=== PATIENT | male | born 1975 | race Caucasian/White ===

== ENCOUNTER 2021-11-04 01:44 | Emergency (ER) | payer OTHER ==
--- NOTE | 2021-11-04 02:04 | EDM.PDOC ---
ED HPI GENERAL MEDICAL PROBLEM - General Chief Complaint: Chest Pain Stated Complaint: CHEST PAINS Time Seen by Provider: 11/04/21 01:45 Source of Information: Reports: Patient History Limitations: Reports: No Limitations - History of Present Illness INITIAL COMMENTS - FREE TEXT/NARRATIVE: 46-year-old male presents to the ED complaining of "shock sensation that starts in his chest and radiates to the rest of his body". Patient first experienced an episode like this last Thursday and lasted approximately 10 hours. Occurred again today approximately 1930. Patient does not describe any chest discomfort or chest pain, chest tightness, or pressure. Just an acute onset of the shock sensation that radiates to the rest of his body. Gives it a 4/10 on level of discomfort. Nothing makes it better or worse, patient was just sitting when the sensation came on. Positive for: Recent bereavement, family history of cardiac in the 40s to include AMI and CVA, EtOH x1. Negative for: Shortness of breath, diaphoresis, nausea/vomiting, weakness, fatigue, trauma, syncope/near syncope, constipation/diarrhea, burping, bloating, third vision, headache, difficulty swallowing, red swollen painful joints, rash, fever. - Related Data Allergies Allergy/AdvReac Type Severity Reaction Status Date / Time No Known Allergies Allergy Verified 11/04/21 01:53 Home Meds: Home Meds Alfuzosin [Uroxatral] 10 mg PO DAILY 11/04/21 [History] Losartan [Cozaar] 25 mg PO DAILY 11/04/21 [History] Omeprazole 20 mg PO DAILY 11/04/21 [History] Risankizumab-Rzaa [Skyrizi] 150 mg SQ ONETIME 11/04/21 [History] Past Medical History Cardiovascular History: Reports: Hypertension ED ROS GENERAL - Review of Systems Review Of Systems: Comprehensive ROS is negative, except as noted in HPI. ED EXAM, GENERAL - Physical Exam Exam: See Below Free Text/Narrative:: ABC intact. No apparent distress. No obvious trauma. Speaking in full sentences. Alert and oriented x3, GCS 456. Exam Limited By: No Limitations General Appearance: Alert, WD/WN, No Apparent Distress Eye Exam: Bilateral Eye: EOMI, PERRL Ears: Normal External Exam, Hearing Grossly Normal Nose: Normal Inspection, Normal Mucosa, No Blood Throat/Mouth: Normal Inspection, Normal Lips, Normal Teeth, Normal Gums, Normal Oropharynx, Normal Voice, No Airway Compromise Head: Atraumatic, Normocephalic Neck: Normal Inspection, Supple, Non-Tender. No: Lymphadenopathy (R), Lymphadenopathy (L), Tender Lateral, Tender Midline Respiratory/Chest: No Respiratory Distress, Lungs Clear, Normal Breath Sounds, No Accessory Muscle Use, Chest Non-Tender Cardiovascular: Normal Peripheral Pulses, Regular Rate, Rhythm, No Edema, No Gallop, No JVD, No Murmur, No Rub GI/Abdominal: Soft, Non-Tender, No Organomegaly, No Distention, No Mass, Other (Negative Rovsing, negative Baldwin) (Male) Exam: Deferred Back Exam: Normal Inspection. No: CVA Tenderness (R), CVA Tenderness (L) Neurological: Alert, Oriented, Normal Cognition Psychiatric: Normal Affect, Normal Mood Skin Exam: Warm, Dry, Intact, Normal Color, No Rash Lymphatic: No Adenopathy #1 Interpretation EKG Date: 11/04/21 (Normal sinus rhythm, without ectopy. No ST elevation or depression, this is not a STEMI, inverted T waves and inverted T waves in V1, flat T waves in lead III) Course - Vital Signs Last Recorded V/S: Last Vital Signs Temp 98.7 F 11/04/21 01:44 Pulse 84 11/04/21 01:44 Resp 16 11/04/21 01:44 BP 156/11 11/04/21 01:44 Pulse Ox 98 11/04/21 01:44 - Orders/Labs/Meds Labs: Laboratory Tests 11/04/21 11/04/21 11/04/21 Range/Units 02:00 02:00 05:00 WBC 5.2 K/uL RBC 5.24 M/uL Hgb 15.8 g/dL Hct 44.4 % MCV 85 fL MCH 30.2 pg MCHC 35.6 g/dL RDW 12.7 % Plt Count 199 K/uL MPV 9.5 fL Neut % (Auto) 57.6 % Lymph % (Auto) 30.5 % [place] % (Auto) 8.4 % Eos % (Auto) 2.9 % Baso % (Auto) 0.6 % Neut # (Auto) 3.02 K/uL Lymph # (Auto) 1.60 K/uL [place] # (Auto) 0.44 K/uL Eos # (Auto) 0.15 K/uL Baso # (Auto) 0.03 K/uL Sodium 141 mmol/L Potassium 4.0 mmol/L Chloride 107 mmol/L Carbon Dioxide 24.8 mmol/L Anion Gap 13.2 mmol/L BUN 17 mg/dL Creatinine 0.97 mg/dL Est Cr Clr Drug Dosing TNP Estimated GFR (MDRD) 83 MLS/MIN BUN/Creatinine Ratio 17.5 Glucose 125 mg/dL Calcium 8.9 mg/dL Troponin I < 0.017 < 0.017 ng/mL Departure - Departure Time of Disposition: 05:55 Disposition: Home, Self-Care 01 Condition: Good Clinical Impression: Anxiety, Hyperventilation Instructions: Acute Coronary Syndrome Referrals: PCP,Unknown [Ordering Only Provider] - Forms: ED Department Discharge Additional Instructions: Stay hydrated with water or electrolyte drink such as Pedialyte. If worsening symptoms or new onset of chest discomfort, shortness of breath, or overall feeling unwell - return to the ER for proper assessment. Sepsis Event Note (ED) - Focused Exam Vital Signs: Vital Signs Temp Pulse Resp BP Pulse Ox 11/04/21 01:44 98.7 F 84 16 156/11 98 - Problem List & Annotations (1) Anxiety SNOMED Code(s): 32489057 Code(s): F41.9 - ANXIETY DISORDER, UNSPECIFIED Status: Acute (2) Hyperventilation SNOMED Code(s): 40639446 Code(s): R06.4 - HYPERVENTILATION Status: Acute - Problem List Review Problem List Initiated/Reviewed/Updated: Yes - Assessment/Plan Assessment:: 46-year-old male who presents for evaluation of symptoms consistent with anxiety reaction. There is no history of anxiety in the past but they have experienced a recent bereavement. Patient feels improved after interventions as noted above in the emergency room. There are no signs of this point of a general medical problem causing anxiety related symptoms such as PE, hyper thyroidism, cardiac ischemia, asthma exacerbation, aortic dissection, other metabolic derangement, infection. There are no signs of serious psychiatric decompensation warranting psychiatric hospitalization or 72-hour hold. No toxidrome to suggest any particular drug ingestion has been noted. Supportive outpatient management is therefore indicated. Patient was also worked up for chest discomfort. The work-up in the emergency room is thus far negative. The differential diagnosis for chest pain is broad and includes life-threatening etiologies such as acute coronary syndrome myocardial infarction, pulmonary embolism acute aortic dissection amongst others. Other causes may include pneumonia, pneumothorax, chest wall source, pericarditis, pleurisy, esophageal spasm, etc. No serious etiology of chest pain were detected today during this visit. Work-up included EKG, troponins, chest x-ray. Close follow-up with primary care provider is indicated and should the pain continue, as further work-up may be performed, this was made clear to the patient who understands. Plan: ABC, history, exam, labs, chest x-ray, patient education/shared decision-making -Patient and/or professional healthcare representative understood and agreed to treatment plan. -All questions were answered to the patient's satisfaction. -Patient is discharged in stable condition, with 0/10 chest discomfort. Patient to return to the ED if symptoms return. Follow-up with primary care provider within 1 week.
--- NOTE | 2021-11-04 08:13 | CR ---
Date of Service: 11/04/21 Clinical Data: chest pain AP CHEST: No priors. The patient has taken a poor inspiration and is in an apical lordotic position. The heart size is normal. The lungs are clear. No pneumothorax. No pleural effusions. No areas of consolidation. [id number] MTDD
== END 2021-11-04 06:20 | disposition home or self-care (01) ==
LOC: LB.ED 01:44
DX: F41.9 Anxiety disorder, unspecified (principal); R06.4 Hyperventilation; Z79.899 Other long term (current) drug therapy
CPT/HCPCS: 36415; 71045; 80048; 84484; 85025; 88740; 99285-25